=== PATIENT | female | born 1950 | race Native Hawaiian/Other Pacific Islander ===

== ENCOUNTER 2022-01-23 12:14 | Emergency (ER) | payer OTHER ==
[~2022-01-23] VITALS: Ht 152.4 cm; Wt 76.2 kg
[2022-01-23 12:24] VITALS: BP 124/55; TEMP 98.2
[2022-01-23 12:38] LABS: PLATELET COUNT 273 K/uL (152-353)
[2022-01-23 12:47] LABS: POTASSIUM 4.4 mmol/L (3.6-5.2)
[2022-01-23] MEDS ORDERED: BUSPIRONE5 MG PO (15:08)
[2022-01-23] MEDS ORDERED: LEVE500T5 PO (15:08)
[2022-01-23] MEDS ORDERED: OMEPRAZOLE40 MG PO (15:09)
[2022-01-23] MEDS ORDERED: AMOX875T8 PO (15:11)
[2022-01-23] MEDS ORDERED: ELIQUIS5 MG PO (15:12)
[2022-01-23] MEDS ORDERED: ONDANSETRON HYDR4 MG PO (15:13)
[2022-01-23] MEDS ORDERED: ACET-206 PO (15:13)
[2022-01-23] MEDS ORDERED: TRAMADOL HYDROC50 MG PO (15:14)
[2022-01-23] MEDS ORDERED: MAALOX ADVAN PO (15:14)
[2022-01-23] MEDS ORDERED: ALPR0.2566 PO (15:15)
[2022-01-23] MEDS ORDERED: MILK OF MAGNESI1 SU1 PO (15:16)
[2022-01-23] MEDS ORDERED: LIPITOR20 MG PO (15:17)
[2022-01-23] MEDS ORDERED: QUETIAPINE50 MG PO (15:18)
[2022-01-23] MEDS ORDERED: MIRALAX17 GM PO (15:19)
[2022-01-23] MEDS ORDERED: BUPROPION HYDR300 MG PO (15:20)
[2022-01-23] MEDS ORDERED: AMIODARONE HYD200 MG PO (15:21)
[2022-01-23] MEDS ORDERED: DILTIAZEM HYDR120 M2 PO (15:23)
[2022-01-23] MEDS ORDERED: NOVOLIN R100 UNIT/1 SC (15:25)
[2022-01-23] MEDS ORDERED: REMERON30 MG PO (15:26)
[2022-01-23] MEDS ORDERED: LEVEMIR FL100 UNIT/M SC (15:26)
[2022-01-23] MEDS ORDERED: QUETIAPINE100 MG PO (15:27)
[2022-01-23] MEDS ORDERED: VITAMIN C500 M7 PO (15:28)
[2022-01-23] MEDS ORDERED: NATURAL ZINC50 MG PO (15:28)
[2022-01-23] MEDS ORDERED: PROTEINE1 PO (15:29)
[2022-01-23] MEDS ORDERED: PROBIOTI1 PO (15:29)
[2022-01-23] MEDS ORDERED: [UNRECOGNIZED DRUG - OTHER] PO (15:32)
== END 2022-01-23 13:53 | disposition still patient (30) ==
LOC: ED 12:14
PROVIDERS: Emergency Medicine
DX: R45.1 Restlessness and agitation (principal); F22 Delusional disorders; E87.1 Hypo-osmolality and hyponatremia; Z11.52 Encounter for screening for COVID-19; Z04.6 Encounter for general psychiatric examination, requested by authority
CPT/HCPCS: 80053; 85027; 87635; 93005; 99283; U0003